=== PATIENT | male | born 1965 | race American Indian/Alaskan Native ===

== ENCOUNTER 2017-12-18 00:59 | Emergency (ER) | payer BC ==
[2017-12-18 01:39] VITALS: BMI 33.5
[2017-12-18 01:44] VITALS: RESP 16
--- NOTE | 2017-12-18 01:57 | ED PDOC ---
Arrival/HPI <Dakota Osuna - Last Filed: 12/18/17 02:23> - History of Present Illness Time/Duration: 1-3 hours Symptom Onset: Sudden Symptom Course: Improving Quality: Aching Severity Level: 5 <Gerald Longoria - Last Filed: 12/18/17 02:51> - General Chief Complaint: Headache Time Seen by Provider: 12/18/17 01:12 - History of Present Illness Narrative History of Present Illness (Text): Patient is a 52 year old male with a past medical history of HIV, hypertension, hyperlipidemia, and DVTs on eliquis who presents to the emergency department for evaluation and treatment of a headache which began approximately 3 hours ago with no specific provoking event. States the pain originates in the bitemporal region and radiates to occiput. Admits to associated dizziness and nausea. States he took 2 Alieve and an aspirin at home which helped improve his symptoms. Currently the headache is rated a 5/10. Denies associated visual and auditory changes. Further denies fever, chills, chest pain, SOB, abdominal pain , vomiting, diarrhea, constipation, and urinary symptoms. 12/18/17 01:57 (Gerald Longoria) Past Medical History - Provider Review Nursing Documentation Reviewed: Yes - Travel History Have you recently traveled outside [place] w/in the past 3 mons?: No - Cardiac Hx Hypotension: Yes - Pulmonary Hx Respiratory Disorders: No - Neurological Hx Neurological Disorder: No - HEENT Hx HEENT Disorder: No - Renal Hx Renal Disorder: No - Endocrine/Metabolic Hx Endocrine Disorders: No - Hematological/Oncological Hx Blood Disorders: No - Integumentary Hx Dermatological Disorder: No - Musculoskeletal/Rheumatological Hx Musculoskeletal Disorders: No - Gastrointestinal Hx Gastrointestinal Disorders: No - Genitourinary/Gynecological Hx Genitourinary Disorders: Yes - Psychiatric Hx Psychophysiologic Disorder: No Hx Substance Use: No - Surgical History Other/Comment: hernia repair - Anesthesia Hx Anesthesia: Yes Hx Anesthesia Reactions: No Hx Malignant Hyperthermia: No <Gerald Longoria - Last Filed: 12/18/17 02:51> Family/Social History - Physician Review Nursing Documentation Reviewed: Yes Family/Social History: Unknown Family HX Smoking Status: Never Smoked Hx Alcohol Use: No Hx Substance Use: No <Gerald Longoria - Last Filed: 12/18/17 02:51> Allergies/Home Meds <Dakota Osuna - Last Filed: 12/18/17 02:23> <VonGerald - Last Filed: 12/18/17 02:51> Allergies/Adverse Reactions: Allergies No Known Allergies Allergy (Verified 12/18/17 01:38) Home Medications: Home Meds Medication Instructions Recorded Confirmed Nebivolol [Bystolic] 5 mg PO DAILY 12/18/17 12/18/17 [place]-3 Fatty Acids/Fish Oil [Fish 1,000 mg PO DAILY 12/18/17 12/18/17 Oil 1,000 mg Capsule] Tamsulosin [Flomax] 0.4 mg PO DAILY 12/18/17 12/18/17 Review of Systems - Physician Review All systems were reviewed & negative as marked: Yes - Review of Systems Constitutional: Normal Eyes: Normal ENT: Normal Respiratory: Normal Cardiovascular: Normal Gastrointestinal: Normal Genitourinary Male: Normal Musculoskeletal: Normal Skin: Normal Neurological: Headache, Dizziness Endocrine: Normal Hemo/Lymphatic: Normal Psychiatric: Normal <Gerald Longoria - Last Filed: 12/18/17 02:51> Physical Exam Temperature: Afebrile Blood Pressure: Hypertensive Pulse: Regular Respiratory Rate: Normal Appearance: Positive for: Well-Appearing, Non-Toxic, Comfortable Pain Distress: None Mental Status: Positive for: Alert and Oriented X 3 - Systems Exam Head: Present: Atraumatic, Normocephalic Pupils: Present: PERRL Extroacular Muscles: Present: EOMI Conjunctiva: Present: Normal Mouth: Present: Moist Mucous Membranes Neck: Present: Normal Range of Motion Respiratory/Chest: Present: Clear to Auscultation, Good Air Exchange. No: Respiratory Distress, Accessory Muscle Use Cardiovascular: Present: Regular Rate and Rhythm, Normal S1, S2. No: Murmurs Abdomen: No: Tenderness, Distention, Peritoneal Signs Back: Present: Normal Inspection Upper Extremity: Present: Normal Inspection. No: Cyanosis, Edema Lower Extremity: Present: Normal Inspection. No: Edema Neurological: Present: GCS=15, CN II-XII Intact, Speech Normal Skin: Present: Warm, Dry, Normal Color. No: Rashes Psychiatric: Present: Alert, Oriented x 3, Normal Insight, Normal Concentration <Gerald Longoria - Last Filed: 12/18/17 02:51> Vital Signs Pulse Resp BP Pulse Ox 12/18/17 01:43 66 16 153/95 H 100 Medical Decision Making <Dakota Osuna - Last Filed: 12/18/17 02:23> <Gerald Longoria - Last Filed: 12/18/17 02:51> ED Course and Treatment: Impression: Pt seen and evaluated with manager medical device. Pt, whose past medical history includes HIV, hypertension, hyperlipidemia, and DVTs, presented for headache, dizziness, and nausea. Aware and agree with HPI, clinical findings, plan, and management. Plan: -- CT Head w/o contrast -- Tylenol -- Reassess and disposition (Dakota Osuna) Assessment and Plan: Patient is a 52 year old male with a past medical history of HIV, hypertension, hyperlipidemia, and DVTs on eliquis who presents to the emergency department for evaluation and treatment of a headache Headache - CT of the head as patient is on eliquis - tylenol for pain 12/18/17 02:16 - CT reviewed- no acute intracranial findings - patient's headache dizziness nausea have resolved - patient ok for discharge to home 12/18/17 02:49 (Gerald Longoria) - RAD Interpretation Narrative RAD Interpretations (Text): EXAM: CT Head Without Intravenous Contrast CLINICAL HISTORY: 52 years old, male; Pain; Headache; Additional info: Headache on anticoagulation TECHNIQUE: Axial computed tomography images of the head/brain without intravenous contrast. All CT scans at this facility use at least one of these dose optimization techniques: automated exposure control; mA and/or kV adjustment per patient size (includes targeted exams where dose is matched to clinical indication); or iterative reconstruction. COMPARISON: No relevant prior studies available. FINDINGS: Brain: Coarse calcification in the right frontal lobe. No hemorrhage. No significant white matter disease. Ventricles: Unremarkable. No ventriculomegaly. Bones/joints: Unremarkable. No acute fracture. Soft tissues: Unremarkable. Sinuses: Unremarkable as visualized. No acute sinusitis. Mastoid air cells: Unremarkable as visualized. No mastoid effusion. IMPRESSION: No acute intracranial findings. (Gerald Longoria) Radiology Orders: 12/18/17 01:53 HEAD W/O CONTRAST [CT] Stat - Medication Orders Current Medication Orders: Discontinued Medications Acetaminophen (Tylenol 325mg Tab) 650 mg PO STAT STA Stop: 12/18/17 01:54 Last Admin: 12/18/17 01:57 Dose: 650 mg MAR Pain/Vitals Document 12/18/17 01:57 MS (Rec: 12/18/17 01:58 MS [id number]) Pain Reassessment Is This A Pain ReAssessment? No Sleep Is patient sleeping during reassessment? No Presence of Pain Presence of Pain Yes Pain Scale Used Pain Scale Used Numeric Location Pain Location Body Auto Body Man Description Intermittent Intensity 3 Scale Used Numeric - PA / DRAWER IN DOBBY LOOM / Resident Statement MD/DO has reviewed & agrees with the documentation as recorded. MD/DO has examined the patient and agrees with the treatment plan. <Dakota Osuna - Last Filed: 12/18/17 02:23> Disposition/Present on Arrival <Dakota Osuna - Last Filed: 12/18/17 02:23> - Present on Arrival Any Indicators Present on Arrival: No History of DVT/PE: Yes History of Uncontrolled Diabetes: No Urinary Catheter: No History of Decub. Ulcer: No History Surgical Site Infection Following: None - Disposition Have Diagnosis and Disposition been Completed?: Yes Disposition Time: 02:50 <Gerald Longoria - Last Filed: 12/18/17 02:51> - Disposition Diagnosis: Headache Disposition: HOME/ ROUTINE Patient Problems: Current Active Problems Problem Status Onset Headache Acute Condition: GOOD Discharge Instructions (ExitCare): Headache, Adult Additional Instructions: BRIA PRIEST, thank you for letting us take care of you today. Your provider was Dakota Osuna MD and you were treated for HEADACHE. The emergency medical care you received today was directed at your acute symptoms. If you were prescribed any medication, please fill it and take as directed. It may take several days for your symptoms to resolve. Return to the Emergency Department if your symptoms worsen, do not improve, or if you have any other problems. Please contact your doctor or call one of the physicians/clinics you have been referred to that are listed on the Patient Visit Information form that is included in your discharge packet. Bring any paperwork you were given at discharge with you along with any medications you are taking to your follow up visit. Our treatment cannot replace ongoing medical care by a primary care provider outside of the emergency department. Thank you for allowing the [facility] team to be part of your care today. If you had an X-Ray or CT scan: A Radiologist will review the ED reading if any change in treatment is needed we will contact you. If you had a blood, urine, or wound culture: It will take several days for the results, if any change in treatment is needed we will contact you. If you had an STI test: It will take 48 hours for the results. Please call after 1 week if you have not heard back. Forms: [employer] ([place]ik)
[2017-12-18 03:28] VITALS: BP 138/77; PULSE 75; O2SAT 99
--- NOTE | 2017-12-18 08:24 | CT ---
PROCEDURE: CT HEAD WITHOUT CONTRAST. HISTORY: headache on anticoagulation COMPARISON: None available. TECHNIQUE: Axial computed tomography images were obtained through the head/brain without intravenous contrast. Radiation dose: Total exam DLP = mGy-cm. This CT exam was performed using one or more of the following dose reduction techniques: Automated exposure control, adjustment of the mA and/or kV according to patient size, and/or use of iterative reconstruction technique. FINDINGS: HEMORRHAGE: No intracranial hemorrhage. BRAIN: No mass effect or edema. No atrophy or chronic microvascular ischemic changes. VENTRICLES: Unremarkable. No hydrocephalus. CALVARIUM: Unremarkable. PARANASAL SINUSES: Unremarkable as visualized. No significant inflammatory changes. MASTOID AIR CELLS: Unremarkable as visualized. No inflammatory changes. OTHER FINDINGS: None. IMPRESSION: Normal CT of the Head.
== END 2017-12-18 03:00 | disposition home or self-care (01) ==
LOC: MERGE 00:59 → ED 00:59
DX: R51 Headache (principal); I10 Essential (primary) hypertension